=== PATIENT | male | born 1990 | race Two or more races ===

== ENCOUNTER 2021-01-11 16:47 | Emergency (ER) | payer OTHER ==
[~2021-01-11] VITALS: Ht 172.7 cm; Wt 90.7 kg
[2021-01-11] MEDS ORDERED: CYCLOBENZAPRINE10 MG PO (19:30)
[2021-01-11] MEDS ORDERED: NORFLEX100MG PO (19:30)
== END 2021-01-11 20:47 | disposition home or self-care (01) ==
LOC: ER 16:47
DX: M54.50 Low back pain, unspecified (principal)